=== PATIENT | male | born 1970 | race African-American/Black ===

== ENCOUNTER 2016-09-14 20:18 | Emergency (ER) | payer MEDICAID ==
[~2016-09-14] VITALS: Ht 182.9 cm; Wt 98.4 kg
[2016-09-14 20:38] VITALS: BP 154/78
== END 2016-09-15 01:42 | disposition left against medical advice (07) ==
LOC: ER 20:25
DX: R03.0 Elevated blood-pressure reading, without diagnosis of hypertension (principal); R42 Dizziness and giddiness; Z53.21 Procedure and treatment not carried out due to patient leaving prior to being seen by health care provider
CPT/HCPCS: 93005

== ENCOUNTER 2016-09-16 11:20 | Emergency (ER) | payer MEDICAID, OTHER ==
[~2016-09-16] VITALS: Ht 182.9 cm; Wt 98.0 kg
[2016-09-16 13:16] VITALS: BP 106/79
[2016-09-16 14:00] LABS: Basophils # (auto) 0.2 uL; Eosinophils # (auto) 0.1 uL; Eosinophils % (auto) 1.8 % (0.0-7.0); Hematocrit 50.4 % (41.0-53.0); Hemoglobin 16.2 g/dL (13.5-17.5); Lymphocytes % (auto) 39.7 % (10.0-50.0); Mean Corpuscular Hemoglobin 29.5 pg (28.0-32.0); Mean Corpuscular Hgb Conc. 32.1 g/dL (32.0-36.0); Mean Corpuscular Volume 92.1 fL (80.0-100.0); Mean Platelet Volume 7.7 fL (7.4-10.4); Monocytes # (auto) 0.4 uL; Neutrophils # (auto) 3.7 uL; Neutrophils % (auto) 50.5 % (37.0-80.0); Platelet Count (auto) 294 10^3/uL (140-450); Red Cell Distribution Width 12.5 % (11.6-16.0); White Blood Cell 7.4 10^3/uL (4.4-10.8)
[2016-09-16 14:17] LABS: Albumin 4.3 g/dL (3.4-5.0); BUN/Creatinine Ratio 10.1; Bilirubin, Total 0.5 mg/dL (0.2-1.0); Calcium 9.2 mg/dL (8.5-10.1); Potassium 4.2 mmol/L (3.5-5.1); Total Protein 8.2 g/dL (6.4-8.2)
== END 2016-09-16 20:57 | disposition left against medical advice (07) ==
LOC: ER 11:20
DX: R07.9 Chest pain, unspecified (principal); R55 Syncope and collapse; Z53.21 Procedure and treatment not carried out due to patient leaving prior to being seen by health care provider
CPT/HCPCS: 36415; 71020; 80053; 82962; 84484; 85025; 93005

== ENCOUNTER 2020-11-23 10:11 | Emergency (ER) | payer MEDICAID, OTHER ==
[~2020-11-23] VITALS: Ht 180.3 cm; Wt 106.6 kg
[2020-11-23 10:12] VITALS: BP 155/70
== END 2020-11-23 10:53 | disposition home or self-care (01) ==
LOC: ER 10:11
DX: L03.032 Cellulitis of left toe (principal); E11.9 Type 2 diabetes mellitus without complications

== ENCOUNTER 2023-08-03 14:23 | Emergency (ER) | payer MEDICAID, OTHER ==
[~2023-08-03] VITALS: Ht 182.9 cm; Wt 97.8 kg
[2023-08-03] MEDS ORDERED: IBUP1TAB5 PO (17:03)
[2023-08-03 19:14] VITALS: BP 134/64; PULSE 61; RESP 18; TEMP 97.8; O2SAT 100
== END 2023-08-03 19:15 | disposition home or self-care (01) ==
LOC: ER 14:23
DX: S82.61XA Displaced fracture of lateral malleolus of right fibula, initial encounter for closed fracture (principal); M77.51 Other enthesopathy of right foot and ankle; E11.9 Type 2 diabetes mellitus without complications; W17.2XXA Fall into hole, initial encounter; Y93.89 Activity, other specified; Y92.89 Other specified places as the place of occurrence of the external cause; Y99.8 Other external cause status
CPT/HCPCS: 29515; 73610

== ENCOUNTER 2024-04-21 10:16 | Emergency (ER) | payer MEDICAID, OTHER ==
[~2024-04-21] VITALS: Ht 182.9 cm; Wt 90.3 kg
[~2024-04-21 10:16] MED LIST: IBUP1TAB5 PO
[2024-04-21 11:00] LABS: Urine Bacteria None Seen /hpf (None Seen)
[2024-04-21 11:29] LABS: Urine Blood Negative /uL (Negative); Urine Clarity Clear (Clear); Urine Color Light-Yellow (Yellow); Urine Protein, UAD Negative (Negative); Urine Specific Gravity 1.041 (1.001-1.035); Urine Urobilinogen Normal (Negative); Urine WBC 2 /hpf (0 - 3)
[2024-04-21 11:50] LABS: Basophils # (auto) 0.1 10 ^3/uL (0-0.2); Basophils % (auto) 1.4 % (0.0-2.0); Eosinophils # (auto) 0.1 10 ^3/uL (0-0.8); Eosinophils % (auto) 1.7 % (0.0-7.0); Hematocrit 47.3 % (41.0-53.0); Hemoglobin 16.4 g/dL (13.5-17.5); Lymphocytes # (auto) 2.4 10 ^3/uL (0.4-5.4); Lymphocytes % (auto) 39.8 % (10.0-50.0); Mean Corpuscular Hemoglobin 30.3 pg (28.0-32.0); Mean Corpuscular Hgb Conc. 34.6 g/dL (32.0-36.0); Mean Corpuscular Volume 87.5 fL (80.0-100.0); Monocytes # (auto) 0.5 10 ^3/uL (0-1.3); Monocytes % (auto) 7.6 % (0.0-12.0); Neutrophils % (auto) 49.5 % (37.0-80.0); Nucleated Red Blood Cells % 0.2 %; Red Blood Cells 5.41 10^6/uL (4.5-5.90); Red Cell Distribution Width 13.3 % (11.8-14.3)
[2024-04-21 12:38] LABS: Alanine Aminotransferase 14 U/L (7-40); Albumin 4.4 g/dL (3.2-4.8); Alkaline Phosphatase 95 U/L (46-116); Anion Gap 6 (5-15); Aspartate Aminotransferase 10 U/L (13-40); BUN/Creatinine Ratio 6.8 (10.0-20.0); Blood Urea Nitrogen 8 mg/dL (9-23); Calcium 9.8 mg/dL (8.7-10.4); Carbon Dioxide 26 mmol/L (20-30); Chloride 99 mmol/L (98-107); Glucose 385 mg/dL (74-106); Potassium 3.8 mmol/L (3.5-5.1); Sodium 131 mmol/L (136-145)
[2024-04-21 12:39] LABS: Bilirubin, Total 0.8 mg/dL (0.2-1.0)
[2024-04-21] MEDS ORDERED: METF-490 PO (13:40)
[2024-04-21 14:40] VITALS: BP 112/78; PULSE 79; RESP 16; TEMP 98; O2SAT 98
== END 2024-04-21 14:47 | disposition home or self-care (01) ==
LOC: ER 10:16
DX: E11.65 Type 2 diabetes mellitus with hyperglycemia (principal); E86.0 Dehydration; Z98.890 Other specified postprocedural states
CPT/HCPCS: 36415; 80053; 81001; 82010; 85025